=== PATIENT | female | born 1950 | race Caucasian/White ===

== ENCOUNTER → 2021-10-15 | Outpatient (CLI) | payer MEDICARE, OTHER | LOC: CARDFS 13:50 | PROVIDERS: ATTEND Nurse Practitioner | DX: I08.0 Rheumatic disorders of both mitral and aortic valves (principal) | CPT/HCPCS: 93306 ==

== ENCOUNTER → 2021-11-11 | Outpatient (CLI) | payer MEDICARE, OTHER ==
--- NOTE | 2021-11-11 15:29 | Diagnostic Imaging Report ---
EXAMINATION: High-resolution CT chest without contrast. TECHNIQUE: Thin section high resolution noncontrast-enhanced axial images were obtained through the chest in supine inspiration and expiration and in prone inspiration, as per the department of CT high resolution chest protocol. All CT scans use one or more of the following dose optimizing techniques: automated exposure control, MA and/or KvP adjustment based on patient size and exam type or iterative reconstruction. HISTORY: Emphysema. COPD. History of asbestos exposure. COMPARISON: None available. FINDINGS: The heart size is prominent. No pericardial effusion is present. Mildly prominent lymph nodes are seen in the mediastinum. No pathologically enlarged lymphadenopathy. Centrilobular emphysema is seen, greatest in the lung apices. No fibrosis is identified. No evidence of bronchiectasis or honeycombing. Air trapping is visualized on expiratory views. No overt airway collapse is identified on expiratory views. No suspicious pulmonary nodules are seen. There are scattered areas of hazy opacities throughout the lungs. Calcified granuloma is seen in the right midlung. There are no focal areas of consolidation. No central endobronchial obstructing lesions are identified. There is no pleural effusion or pneumothorax. The osseous structures demonstrate no acute abnormalities. Limited views of the upper abdominal structures demonstrate no acute abnormalities. The gallbladder is surgically absent. Both adrenal glands are unremarkable. IMPRESSION: 1. Air trapping on expiratory views, suggestive of small airways disease. Possible associated scattered hazy opacities are noted, which may represent inflammatory or infectious process. No evidence of overt airway collapse. No focal consolidations. 2. Calcified granuloma in the right midlung, most likely representing prior granulomatous disease. 3. Cardiomegaly. 4. No evidence of fibrosis or honeycombing. 5. Centrilobular emphysema, greatest in the lung apices. Dictated by: Dictated on workstation # [id number]
== END ==
LOC: RAD FS 10:13
PROVIDERS: ATTEND Nurse Practitioner
DX: J43.2 Centrilobular emphysema (principal); I51.7 Cardiomegaly; J84.10 Pulmonary fibrosis, unspecified
CPT/HCPCS: 71250